=== PATIENT | male | born 1955 | race Caucasian/White ===

== ENCOUNTER 2017-06-20 17:19 | Emergency (ER) | payer BC ==
[~2017-06-20] VITALS: Ht 167.6 cm; Wt 81.6 kg
[2017-06-20 18:57] LABS: BASOPHILS % 0.5 % (0.0-1.0); EOSINOPHILS # (AUTO) 0.6 (0.0-0.4); EOSINOPHILS % 6.6 % (0.0-6.0); HEMATOCRIT 43.8 % (38.2-49.6); LYMPHOCYTES # (AUTO) 2.4 (1.0-3.2); MEAN CORPUSCULAR HEMOGLOBIN 33.9 pg (28-32); MEAN CORPUSCULAR HGB CONC 34.2 g/dL (31-35); MEAN CORPUSCULAR VOLUME 99.1 fL (81-99); MONOCYTES # (AUTO) 0.7 (0.2-0.8); MONOCYTES % 8.6 % (4.4-11.3); NEUTROPHILS # (AUTO) 4.8 (2.1-6.9); NEUTROPHILS % 56.1 % (38.7-80.0); PLATELET COUNT 266 x10e3/uL (140-360); RED BLOOD COUNT 4.42 x10e6/uL (4.3-5.7); RED CELL DISTRIBUTION WIDTH 12.3 % (11.7-14.4)
--- NOTE | 2017-06-20 18:57 | Diagnostic Imaging Report ---
PROCEDURE:HAND RIGHT 3 VIEWS AP \T\ LAT COMPARISON:None. INDICATIONS:RIGHT HAND SWELLING FINDINGS: There are no acute fractures, dislocations, lytic or blastic lesions. Degenerative changes of the second DIP joint. Chronic appearing post-traumatic changes of the distal phalanx and DIP of the second digit. A small osseous fragment adjacent to the second tuft appears well corticated. The bones are well-mineralized. Soft tissue swelling of the hand, more prominent in the second digit. CONCLUSION: Post-traumatic changes of the distal second digit are favored to chronic. Otherwise, no acute osseous abnormalities. Dictated by: Waldemar Wilkins M.D. on 06/20/2017 at 19:05 Electronically approved by: Waldemar Wilkins M.D. on 06/20/2017 at 19:05
[2017-06-20 19:36] LABS: ANION GAP 13.1 mmol/L (8-16); BLOOD UREA NITROGEN 15 mg/dL (7-26); BUN/CREATININE RATIO 15 (6-25); CALCIUM 9.8 mg/dL (8.4-10.2); CARBON DIOXIDE 25 mmol/L (22-29); CHLORIDE 106 mmol/L (98-107); CREATININE, SERUM 1.03 mg/dL (0.72-1.25); EST GLOMERULAR FILTRATION RATE > 60 ML/MIN (60-); GLUCOSE 96 mg/dL (74-118); POTASSIUM 4.1 mmol/L (3.5-5.1); SODIUM 140 mmol/L (136-145)
[2017-06-20 20:14] VITALS: BP 144/90
== END 2017-06-20 20:52 | disposition home or self-care (01) ==
LOC: ER 17:19
DX: M79.641 Pain in right hand (principal); M79.89 Other specified soft tissue disorders; L03.113 Cellulitis of right upper limb; I10 Essential (primary) hypertension
CPT/HCPCS: 36415; 80048; 85025; 99284